=== PATIENT | female | born 1975 ===

== ENCOUNTER 2017-04-18 20:10 | Emergency (ER) | payer MEDICAID ==
[2017-04-18 20:10] VITALS: BMI 28.3
[2017-04-18 20:59] VITALS: BP 152/85; PULSE 99; RESP 16; TEMP 98.1; O2SAT 96
[2017-04-18] MEDS ORDERED: DiphenhydrAMINE 50 mg/ml Inj IVP STA (21:41)
--- NOTE | 2017-04-18 21:48 | ED PDOC ---
HPI: Headache Time Seen by Provider: 04/18/17 21:21 Chief Complaint (Nursing): Headache Chief Complaint (Provider): headache History Per: Patient History/Exam Limitations: no limitations Onset/Duration Of Symptoms: Days (2), Gradual Current Symptoms Are (Timing): Still Present Quality: Aching, Tightness, "Pain" Associated Symptoms: Photophobia, Nausea. denies: Blurred Vision, Vomiting, Extremity Weakness Additional Complaint(s): RIGHT sided constant increasing since onset, mild yesterday, worsened today. Admits increase stress in family. Reports h/o migraines many years ago, no workup done. Took ibuprofen with no relief. PMD [facility] Past Medical History Reviewed: Historical Data, Nursing Documentation, Vital Signs Vital Signs: Last Vital Signs Temp 98.1 F 04/18/17 20:56 Pulse 99 H 04/18/17 20:56 Resp 16 04/18/17 20:56 BP 152/85 H 04/18/17 20:56 Pulse Ox 96 04/18/17 20:56 - Medical History PMH: No Chronic Diseases, Kidney Stones - Surgical History Surgical History: Hernia Repair, (3) Other surgeries: Hysterectomy - Family History Family History: States: No Known Family Hx - Social History Current smoker - smoking cessation education provided: No Alcohol: None Drugs: Denies - Home Medications Home Medications: Ambulatory Orders Medication Instructions Recorded Ibuprofen [Motrin] 400 mg PO Q4 09/25/14 Phenazopyridine Hydrochlorid2 200 mg PO TID 09/25/14 [Pyridium] Ciprofloxacin HCl [Cipro] 500 mg PO BID #14 tab 09/30/15 Oxycodone HCl/Acetaminophen 1 tab PO Q6H PRN #10 tab 09/30/15 [Percocet 325 mg-5 mg] Tamsulosin [Flomax] 0.4 mg PO DAILY #14 cap 09/30/15 Prednisone 50 mg PO ONCE #1 tablet 05/05/16 Promethazine/Phenyleph/Codeine 10 ml PO BID PRN #150 syrup 05/05/16 [Clraqliejyuj-DQ-Uellfvq Syrup] Meclizine [Meclizine*] 1 - 2 tab PO Q6 PRN #30 tab 07/04/16 Sulfamethoxazole/Trimethoprim 1 each PO BID #14 tablet 07/04/16 [Bactrim Ds Tablet] Acetaminophen/Butalbital/Caf 1 tab PO TID PRN #15 tab 04/18/17 [Fioricet] Naproxen [Naprosyn] 1 tab PO BID PRN #30 tab 04/18/17 - Allergies Allergies/Adverse Reactions: Allergies Allergy/AdvReac Type Severity Reaction Status Date / Time No Known Allergies Allergy Verified 04/18/17 20:59 Review of Systems ROS Statement: Except As Marked, All Systems Reviewed And Found Negative (and as per HPI) Constitutional: Positive for: Malaise Gastrointestinal: Positive for: Nausea. Negative for: Vomiting, Abdominal Pain Musculoskeletal: Positive for: Neck Pain Neurological: Positive for: Headache, Dizziness. Negative for: Weakness, Numbness Psych: Positive for: Anxiety Physical Exam - Reviewed Nursing Documentation Reviewed: Yes Vital Signs Reviewed: Yes - Physical Exam Appears: Positive for: Non-toxic, In Acute Distress Head Exam: Positive for: ATRAUMATIC, NORMOCEPHALIC Skin: Positive for: Warm, Dry Eye Exam: Positive for: EOMI, PERRL ENT: Negative for: Pharyngeal Erythema, Tonsillar Exudate Neck: Positive for: Painless ROM, Supple (with tenderness to palpation RIGHT paraspinal/trapezius) Cardiovascular/Chest: Positive for: Regular Rate, Rhythm, Chest Non Tender. Negative for: Murmur Respiratory: Positive for: Normal Breath Sounds. Negative for: Wheezing, Respiratory Distress Gastrointestinal/Abdominal: Positive for: Soft. Negative for: Tenderness, Mass , Distended, Guarding Back: Positive for: Normal Inspection. Negative for: Decreased ROM Extremity: Positive for: Normal ROM. 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 Negative for: Motor/Sensory Deficits - Laboratory Results Result Diagrams: 04/18/17 22:16 04/18/17 22:16 - ECG O2 Sat by Pulse Oximetry: 96 - Progress ED Course And Treament: Accession No. : [id number] Patient Name / ID : DANUTA MCLAUGHLIN / [id number] Exam Date : 04/18/2017 22:12:32 ( Approved ) Study Comment : Sex / Age : F / 41Y Creator : Pawan Velez MD Dictator : Color Blender : Family Medicine Physician Assistant : Pawan Velez MD Approver2 : Report Date : 04/18/2017 22:37:00 My Comment : [facility] Division of Radiology [address] [place] [address] Tel. no. Patient Name: ARNOLDO TIPTON Pt. Address: [address] [place] [address] Rec #: [id number] [place] [address]: Dallin ZENDEJAS, Christy Mejia Pt CELL Order Location: [facility] : 1975 Female Age: 41 Order #: [id number] Reason for exam: headache RIGHT sided CT Scan HEAD W/O CONTRAST Exam Date: 04/18/17 This imaging exam was performed at [facility] EXAM: CT Head Without Intravenous Contrast CLINICAL HISTORY: 41 years old, female; Pain; Headache; Other: Right sided; Additional info: Headache right sided TECHNIQUE: Axial computed tomography images of the head/brain without intravenous contrast. All CT scans at this facility use one or more dose reduction techniques, viz.: automated exposure control; ma/kV adjustment per patient size (including targeted exams where dose is matched to indication; i.e. head); or iterative reconstruction technique. Coronal reformatted images were created and reviewed. COMPARISON: No relevant prior studies available. FINDINGS: Brain: Minimal atrophy. No intracranial hemorrhage. No mass. Few scattered foci of decreased attenuation within periventricular/subcortical white matter. No definite edema. Ventricles: No hydrocephalus. Bones/joints: No acute fracture. Soft tissues: Unremarkable. Sinuses: Scattered moderate mucosal thickening of ethmoid sinuses. Scattered minimal to mild mucosal thickening of remaining sinuses. Mastoid air cells: No mastoid effusion. Orbits: Unremarkable as visualized. IMPRESSION: 1. Nonspecific white matter changes. Acute infarction may be CT occult within first 24 hours. If a focal deficit persists, consider followup CT or MRI for further evaluation. 2. Incidental/non-acute findings are described above. Dictated By: Pawan Velez MD Dictated Date/Time: 04/18/172236 Signed By: Pawan Velez MD Date Signed: [id number] Transcribed By: NICOLE Transcribe Date/Time : 04/18/172236 [id number] Disposition - Clinical Impression Clinical Impression: Headache - Disposition Referrals: Marlin Gonzales MD [Family Provider] - 04/19/17 (LLAMA A LA OFICINA DE DR GONZALES POR LA MANANA A HACER DAVID ABILIO EN 2-3 SEAY A CHEAR DE [facility] Disposition: Routine/Home Disposition Time: 23:00 Condition: IMPROVED Prescriptions: Acetaminophen/Butalbital/Caf [Fioricet] 1 tab PO TID PRN #15 tab PRN Reason: severe headache only Naproxen [Naprosyn] 1 tab PO BID PRN #30 tab PRN Reason: Pain Instructions: Acute Headache (ED), Stress (ED) Forms: [facility] ED School/Work Excuse Print Language: ALBANIAN
[2017-04-18] MEDS ORDERED: DiphenhydrAMINE 50 mg/ml Inj ONE (21:54)
[2017-04-18 22:19] LABS: BASO # 0.1 K/uL (0.0-0.2); BASO % 0.6 % (0.0-2.0); EOS # 0.4 K/uL (0.0-0.7); EOS % 3.4 % (0.0-4.0); HEMATOCRIT 41.3 % (34.0-47.0); LYMPH # 2.1 K/uL (1.0-4.3); LYMPH % 18.9 % (20.0-40.0); MEAN CELL VOLUME 89.5 fl (81.0-99.0); MEAN CORPUSCULAR HEMOGLOBIN 29.4 pg (27.0-31.0); MEAN CORPUSCULAR HGB CONC 32.9 g/dL (33.0-37.0); MEAN PLATELET VOLUME 7.8 fl (7.2-11.7); MONO # 0.6 K/uL (0.0-0.8); MONO % 5.4 % (0.0-10.0); NEUT % 71.7 % (50.0-75.0); RED CELL DISTRIBUTION WIDTH 13.4 % (11.5-14.5); WHITE BLOOD COUNT 11.1 K/uL (4.8-10.8)
[2017-04-18 22:34] LABS: ALCOHOL SERUM < 10 mg/dl (0-10); ALKALINE PHOSPHATASE 72 U/L (38-126); ALT/SGPT 46 U/L (9-52); AST/SGOT 25 U/L (14-36); BILIRUBIN,TOTAL 0.3 mg/dl (0.2-1.3); BLOOD UREA NITROGEN 15 mg/dl (7-17); CALCIUM 9.4 mg/dL (8.4-10.2); CARBON DIOXIDE 25 mmol/L (22-30); CHLORIDE 107 mmol/L (98-107); GFR AFRICAN-AMERICAN > 60; GLUCOSE,RANDOM 131 mg/dL (65-105); MAGNESIUM 2.2 MG/DL (1.6-2.3); PHOSPHOROUS 2.9 mg/dl (2.5-4.5); SODIUM 143 mmol/l (132-148); TOTAL PROTEIN 8.7 G/DL (6.3-8.2)
--- NOTE | 2017-04-18 22:38 | CT ---
EXAM: CT Head Without Intravenous Contrast CLINICAL HISTORY: 41 years old, female; Pain; Headache; Other: Right sided; Additional info: Headache right sided TECHNIQUE: Axial computed tomography images of the head/brain without intravenous contrast. All CT scans at this facility use one or more dose reduction techniques, viz.: automated exposure control; ma/kV adjustment per patient size (including targeted exams where dose is matched to indication; i.e. head); or iterative reconstruction technique. Coronal reformatted images were created and reviewed. COMPARISON: No relevant prior studies available. FINDINGS: Brain: Minimal atrophy. No intracranial hemorrhage. No mass. Few scattered foci of decreased attenuation within periventricular/subcortical white matter. No definite edema. Ventricles: No hydrocephalus. Bones/joints: No acute fracture. Soft tissues: Unremarkable. Sinuses: Scattered moderate mucosal thickening of ethmoid sinuses. Scattered minimal to mild mucosal thickening of remaining sinuses. Mastoid air cells: No mastoid effusion. Orbits: Unremarkable as visualized. IMPRESSION: 1. Nonspecific white matter changes. Acute infarction may be CT occult within first 24 hours. If a focal deficit persists, consider followup CT or MRI for further evaluation. 2. Incidental/non-acute findings are described above.
[2017-04-18 22:43] LABS: ALB/GLOB RATIO 1.3 (1.0-2.1)
== END 2017-04-18 23:47 | disposition home or self-care (01) ==
LOC: H.ER 20:10
DX: R51 Headache (principal); R42 Dizziness and giddiness
CPT/HCPCS: 70450; 80053; 80320; 80324; 80345; 80346; 80349; 80353; 80358; 80361; 81025; 83735; 83992; 84100; 85025; 96374; 96375; 99283; J1200; J1885; J2765